=== PATIENT | female | born 1955 | race Caucasian/White ===

== ENCOUNTER 2020-08-16 08:07 | Emergency (ER) | payer MEDICARE, BC ==
[~2020-08-16] VITALS: Ht 175.3 cm; Wt 78.0 kg
[2020-08-16 08:49] LABS: BASOPHILS % (AUTO) 0.4 % (0-1); EOSINOPHILS % (AUTO) 0.1 % (0-6); HEMATOCRIT 45.2 % (35.0-45.0); HEMOGLOBIN 15.3 g/dl (12.0-16.0); LYMPHOCYTES % (AUTO) 13.7 % (21-51); MEAN CORPUSCULAR HEMOGLOBIN 31.8 PG (27.0-31.0); MEAN CORPUSCULAR HGB CONC 33.9 g/dL (33.0-36.5); MEAN CORPUSCULAR VOLUME 93.8 FL (78-98); MEAN PLATELET VOLUME 7.8 FL (7.4-10.4); MONOCYTES # (AUTO) 0.2 X10'3 (0-0.9); MONOCYTES % (AUTO) 2.9 % (2-12); NEUTROPHILS # (AUTO) 6.3 X10'3 (1.8-7.7); NEUTROPHILS % (AUTO) 82.9 % (42-75); PLATELET COUNT 308 X10'3 (140-440); RED BLOOD COUNT 4.82 X10'6 (4.20-5.60); RED CELL DISTRIBUTION WIDTH 13.1 % (11.5-14.5); WHITE BLOOD COUNT 7.5 X10'3 (4.5-11.0)
[2020-08-16] MEDS ORDERED: metoprolol tartrate 1mg/ml inj IV ONE (09:00)
[2020-08-16 09:02] LABS: ALANINE AMINOTRANSFERASE 38 U/L (12-78); ALBUMIN 4.2 G/DL (3.4-5.0); ALBUMIN/GLOBULIN RATIO 1.1 (1.1-1.5); ALKALINE PHOSPHATASE 88 IU/L (46-116); ANION GAP 12 (8-16); ASPARTATE AMINO TRANSFERASE 21 U/L (10-37); BILIRUBIN,TOTAL 0.4 MG/DL (0.1-1.0); BLOOD UREA NITROGEN 13 MG/DL (7-18); BUN/CREATININE RATIO 16.7 (6.6-38.0); CALCIUM 9.9 MG/DL (8.5-10.1); CHLORIDE 102 MMOL/L (99-107); CREATININE 0.78 MG/DL (0.40-0.90); GLUCOSE 138 MG/DL (70-104); POTASSIUM 3.6 MMOL/L (3.5-5.1); SODIUM 139 MMOL/L (135-145); TOTAL CARBON DIOXIDE 24.9 MMOL/L (24-32); TOTAL PROTEIN 7.9 G/DL (6.4-8.2); eGFR 74 ML/MIN
--- NOTE | 2020-08-16 10:00 | NUR ---
PT ANXIOUS AND DOESNT WANT TO BE LEFT ALONE
--- NOTE | 2020-08-16 10:15 | NUR ---
at bedside,will dc patient.
[2020-08-16] MEDS ORDERED: ATEN-169 PO (10:48)
--- NOTE | 2020-08-16 10:51 | NUR ---
pt states, i feel so much better, just want to go home and go to bed.
[2020-08-16 11:38] VITALS: BP 136/70
== END 2020-08-16 11:42 | disposition home or self-care (01) ==
LOC: ER 08:09
DX: R00.2 Palpitations (principal); R06.89 Other abnormalities of breathing; R00.0 Tachycardia, unspecified; Z79.899 Other long term (current) drug therapy
CPT/HCPCS: 36415; 71045; 80053; 83880; 84484; 85025; 93005; 96374; 99285; J3490

== ENCOUNTER 2025-04-08 10:00 | Observation (INO) | payer MEDICARE, OTHER ==
[~2025-04-08] VITALS: Ht 175.3 cm; Wt 77.3 kg
--- NOTE | 2025-04-08 10:26 | ELECTROCARDIOGRAPH REPORT ---
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 Rupesh Aguillon Measurements Intervals [place] Rate: 81 P: 27 NH: 156 QRS: 3 QRSD: 86 T: 65 QT: 398 QTc: 462 Interpretive Statements Sinus rhythm Atrial premature complex Probable left atrial enlargement Electronically Signed On 04-08-2025 11:53:[address] Rupesh Aguillon Please click the below link to view image of tracing.
--- NOTE | 2025-04-08 10:51 | RADIOLOGY REPORT ---
CHEST RADIOGRAPH Indication: CP Technique: Single frontal view of the chest was obtained Comparison: CHEST,SINGLE VIEW on DOS: 08/16/20 FINDINGS: Lines and Tubes: None Lungs: No focal consolidation. Pleura: No effusion. No pneumothorax. Cardiomediastinal contours: Unremarkable Bones: No acute osseous abnormality. IMPRESSION: 1. No acute cardiopulmonary disease.
[2025-04-08 10:53] LABS: MEAN PLATELET VOLUME 8.0 FL (7.4-10.4); RED CELL DISTRIBUTION WIDTH 13.2 % (11.5-14.5)
[2025-04-08 11:16] LABS: CREATININE 0.78 MG/DL (0.40-0.90); PRO BRAIN NATRIURETIC PEPTIDE 55 PG/ML (0-125); TOTAL CARBON DIOXIDE 26.4 MMOL/L (24-32); eCRCL 69 ML/MIN; eGFR 73 ML/MIN
--- NOTE | 2025-04-08 11:23 | Physician Documentation ---
History of Present Illness ~ Chief Complaint: Chest Pain Stated Complaint: WEAKNESS/ANXIOUS Time Seen by MD: 10:24 OK to notify your PCP?: Yes Source: patient, RN/MD, RN notes reviewed, old records Mode of Arrival: POV Exam Limitations: no limitations [facility] BED 16 This patient is a 69 y/o female who presents to ED with chief complaint of chest pain. Patient reports that she woke up this morning feeling somewhat anxious, as she was running late for a trip. She states that soon after she developed some burning in her chest, followed by some slight pain and weakness in her left arm. She does note that she was cleaning windows yesterday with that arm, which may account for the soreness. Patient notes she recently went camping last week, and feels somewhat sore from all the activity but otherwise denies any increased fa tigue or weakness from baseline. She denies any cardiac history, but states she does have some familial cardiac history; a younger brother who had an MD and stents a few years ago, and her other siblings with hypertension. She has not taken any ASA or other medications prior to arrival. Patient otherwise healthy. Patient was asked but denies any SOB. She does have some palpitations with her anxiety. Patient denies any other associated symptoms at this time. Patient denies any other alleviating or exacerbating factors. Medication Reconciliation Allergies: Coded Allergies: No Known Allergies (Unverified , 08/16/20) Past Medical History Past Medical History: *DERMATOLOGY* ([place]) Past Surgical History: other Other Past Surgical History: Cataract Surgery Smoking Status: Never smoker Alcohol Use: None Drug Use: none Review of Systems All Other Systems at this time: Reviewed and Negative ROS As stated in the HPI above, otherwise all other systems have been reviewed and negative. Respiratory: Denies: shortness of breath Cardiovascular: Reports: chest pain, left arm pain, palpitations Physical Exam Vital Signs: RN Vital Signs have been reviewed: Yes, Temperature: 97.7, Source: Temporal, Heart Rate: 82, Respiratory Rate: 18, BP: 189/74, Pulse Oximetry: 99, Weight: 77.350 Oxygen Flow Rate: 0 Physical Exam General: The patient is well developed, well nourished, nontoxic appearing and is in no acute distress. Skin: [place], warm and dry with no rashes. HEENT: Head was normocephalic and atraumatic. Eyes - pupils equal, round, reactive to light and accommodation. Extraocular movements were intact. Conjunctivae were nonicteric. The mouth and oropharynx were clear with moist mucous membranes. There were no pharyngeal exudates or erythema. Neck: Supple and nontender. There was no jugular venous distention, lymphadenopathy, thyromegaly or masses. Chest: Clear to auscultation bilaterally without wheezes, rales or rhonchi. No accessory muscle use. No dullness to percussion. Heart: 2/6 systolic injection murmur. Palpation of the chest wall was normal. No reproducible chest wall pain. Rate regular and rhythmic. S1, S2. No rubs or thrills. Abdomen: Soft, nontender and nondistended. Positive bowel sounds. No guarding or rebound. No hepatosplenomegaly or palpable masses. Extremities: No cyanosis, clubbing or edema. The patient moves all extremities. Pulses were equal and symmetric. Neurologic: Motor and sensation grossly intact. A & O x4. Psychologic: The patient was oriented to person, place and time. Progress Progress Note 1305: Paged hospitalist 1308: Case discussed with hospitalist who agrees to evaluate patient for admission. Results/Orders Reviewed/noted all lab results: Yes Results/Orders Orders - STEVE WYLIE MD Chest,Single View (04/08/25 10:24) Monitor (04/08/25 10:24) Saline Lock (04/08/25 10:24) Oxygen (04/08/25 10:24) Electrocardiogram (04/08/25 10:24) Page Hospitalist (04/08/25 13:05) Fill Out Med Reconciliation (04/08/25 13:05) Completed Orders - STEVE WYLIE MD Chest,Single View (04/08/25 10:24) Cbc/Diff (04/08/25 10:24) BMP (04/08/25 10:24) PBNP (04/08/25 10:24) Electrocardiogram (04/08/25 10:24) Hs Troponin I W Calculations (04/08/25 10:24) Hs Troponin I W Calculations (04/08/25 12:24) Hs Troponin I W Calculations (04/08/25 13:24) Pt Inr (04/08/25 11:38) PTT (04/08/25 11:38) Lipase (04/08/25 10:40) Liver Panel (04/08/25 10:40) Aspirin 81mg Chew Tablet (Aspirin 81mg C (04/08/25 12:25) Lipid Panel (04/08/25 10:40) MG (04/08/25 10:40) TSH (04/08/25 10:40) Medications Received in ER Medications (Trade) Dose Ordered Sig/Arthur Route PRN Reason Start Time Stop Time Status Last Admin Dose Admin (aspirin 81MG chew tablet) 324 mg ONCE ONCE PO 04/08/25 12:25 04/08/25 12:26 DC 04/08/25 13:08 324 MG Vital Signs 04/08/25 04/08/25 04/08/25 04/08/25 10:19 11:24 11:24 11:25 Temp 97.7 Pulse 82 83 Resp 18 16 16 B/P (MAP) 189/74 182/89 (120) Pulse Ox 99 98 97 O2 Delivery Room Air* O2 Flow Rate 0 0 0 FiO2 21 Laboratory Tests Test 04/08/25 10:40 04/08/25 12:28 White Blood Count 6.7 Red Blood Count 4.69 Hemoglobin 14.7 Hematocrit 43.1 Mean Corpuscular Volume 92.0 Mean Corpuscular Hemoglobin 31.4 H Mean Corpuscular Hemoglobin Concent 34.1 Red Cell Distribution Width 13.2 Platelet Count 282 Mean Platelet Volume 8.0 Neutrophils (%) (Auto) 57.4 Lymphocytes (%) (Auto) 32.4 Monocytes (%) (Auto) 8.3 Eosinophils (%) (Auto) 1.0 Basophils (%) (Auto) 0.9 Neutrophils # (Auto) 3.8 Lymphocytes # (Auto) 2.2 Monocytes # (Auto) 0.5 Eosinophils # (Auto) 0.1 Basophils # (Auto) 0.1 CBC Comment Prothrombin Time 10.0 INR International Normalized Ratio 1.0 Activated Partial Thromboplast Time 26 Coagulation Comments Sodium Level 137 Potassium Level 3.9 Chloride Level 104 Carbon Dioxide Level 26.4 Anion Gap 7 L Blood Urea Nitrogen 8 Creatinine 0.78 Estimated GFR/1.73 m2 73 BUN/Creatinine Ratio 10.3 Glucose Level 125 H Calcium Level 9.6 Magnesium Level 1.8 Total Bilirubin 0.6 Direct Bilirubin 0.1 Aspartate Amino Transf (AST/SGOT) 17 Alanine Aminotransferase (ALT/SGPT) 24 Alkaline Phosphatase 79 Troponin I High Sensitivity 6 8 Pro-B-Type Natriuretic Peptide 55 Total Protein 7.5 Albumin 4.0 Globulin 3.5 Albumin/Globulin Ratio 1.1 Triglycerides Level 100 Cholesterol Level 234 H LDL Cholesterol 136 H HDL Cholesterol 76 H Cholesterol/HDL Ratio 3.1 Lipase 31 Thyroid Stimulating Hormone (TSH) 3.18 Chemistry Comments Troponin I High Sens Percent Delta 33 Troponin I Hi Sens Absolute Change 2 Re-Evaluation Re-Evaluation : Re-Evaluation: Improved Progress Patient was seen and examined. Patient is given reassurance. Patient's laboratory work was all reassuring. Coagulation within normal limits tox screen negative urinalysis negative chemistry also negative including LFTs with two troponins which are negative. CBC is also within normal limits. Patient's history has a bit concerning or possible unstable angina which will require stress test. Patient received aspirin and later was admitted for further workup and care. Has been at bedside patient understood plan for stress test. Echocardiogram was ordered chest x-ray showed no infiltrates or effusions. Continuous residential monitor interpretation shows normal sinus rhythm heart rate 80s, no ectopy, normal, my interpretation. Pulse oximetry monitor interpretation shows normal oxygenation 99% room air, normal, my interpretation. 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 Steve Wylie Measurements Intervals [place] Rate: 81 P: 27 DE: 156 QRS: 3 QRSD: 86 T: 65 QT: 398 QTc: 462 Interpretive Statements Sinus rhythm Atrial premature complex Probable left atrial enlargement Electronically Signed On 04-08-2025 11:53:[address] Steve Wylie Please click the below link to view image of tracing. EKG Date and Time:04/08/25 1005 Electronically Signed by: STEVE WYLIE MD Date and Time: 04/08/25 1153 NO PRIMARY CARE PROVIDER~ cc: ~ Chest X-Ray : Interpreted By: both Additional Comments [address] [id number] DIAGNOSTIC RADIOLOGY Patient: ZONIA RAMÍREZ Medical Record: [id number] [facility] : 1955, Age: 69 Sex: Female Location: ER Patient Status: [facility] ER Service Date/Time: 04/08/251023 Ordering Physician: STEVE WYLIE MD Exam: CHEST,SINGLE VIEW CHEST RADIOGRAPH Indication: CP Technique: Single frontal view of the chest was obtained Comparison: CHEST,SINGLE VIEW on DOS: 08/16/20 FINDINGS: Lines and Tubes: None Lungs: No focal consolidation. Pleura: No effusion. No pneumothorax. Cardiomediastinal contours: Unremarkable Bones: No acute osseous abnormality. IMPRESSION: 1. No acute cardiopulmonary disease. Electronically Signed by:DAMARIS BULL MD Date & Time: 04/08/25 1049 Dictated by: DAMARIS BULL MD Dictation date and time: 04/08/25 1035 Primary Care Provider: NO PRIMARY CARE PROVIDER cc: STEVE WYLIE MD ~ EDMD Dr. Wylie reviewed imaging and agrees with above findings. Heart Score: Heart Score Response (Comments) Value History Moderate Suspicious 1 EKG Repolarization Disturb 1 Age >65 2 Risk Factors 1 or 2 risk factors 1 Troponin Normal limit 0 Total 5 Medical Decision Making Additional info obtained from: old records Differential Dx:Considerations: Include: angina, aortic dissection, chest wall pain, cholelithiasis, CHF, costochondritis, esophageal reflux/spasm, gastritis, herpes zoster, myocardial infarction, pericarditis, pleuritis, pancreatitis, pneumonia, pneumothorax, pulmonary embolus, other Departure Time of Disposition: 13:08 Disposition: ADMITTED INPATIENT Admitted to Inpatient Unit: to hospitalist Admission Level of Care: PCU with Tele Impression: Primary Impression: Chest pain Qualified Codes: R07.9 - Chest pain, unspecified Additional Impression: Accelerated hypertension Condition: Guarded Referrals: NO PRIMARY CARE PROVIDER (PCP) Education Educated: Patient Educated regarding: diagnosis, treatment, prognosis, need for follow up, other Signature Scribe Signature: Scribed for Steve Wylie MD by Rebeka Garcia. 04/08/25 11:52 Attestation: The note accurately reflects work and decisions made by me.Steve Wylie MD 04/08/25 11:23 STEVE WYLIE MD Apr 08, 2025 11:23
[2025-04-08 11:55] LABS: APTT 26 SECONDS (22-32); INR 1.0 INR
[2025-04-08] MEDS ORDERED: magnesium Cl slow-release 64mg tablet PO PRN (14:55)
[2025-04-08] MEDS ORDERED: magnesium hydroxide 30ml (MOM) UD suspension PO PRN (14:55)
[2025-04-08] MEDS: PERFLUTREN PROTEIN-A MICROSPHR (Optison) 0.22 MG/ML 3ML VIAL IV ONE (14:55)
[2025-04-08] MEDS ORDERED: potassium Cl 20 mEq SR tablet PO PRN ×2 (14:55)
[2025-04-08] MEDS ORDERED: docusate sod 100mg capsule PO PRN (14:55)
[2025-04-08] MEDS ORDERED: ondansetron/PF 4mg/2ml inj IV PRN (14:55)
[2025-04-08] MEDS ORDERED: aminophylline 250mg/10ml inj. IV PRN (14:55)
[2025-04-08] MEDS ORDERED: mag hydrox/Alum hydrox/simeth 30ml oral suspension PO PRN (14:55)
[2025-04-08] MEDS ORDERED: magnesium sulf-water 2g/50mL 50 ML IV PRN (14:55)
[2025-04-08] MEDS ORDERED: potassium Cl 40MEQ/1/2NS 520ml 520 ML IV PRN (14:55)
[2025-04-08] MEDS ORDERED: metoprolol tartrate 1mg/ml inj IV PRN (14:55)
[2025-04-08] MEDS ORDERED: magnesium sulf-water 4G/100mL 100 ML IV PRN (14:55)
[2025-04-08 15:25] LABS: LEUKOCYTE ESTERASE ,URINE NEGATIVE (Neg); NITRITES, URINE NEGATIVE (Neg); OCCULT BLOOD,URINE NEGATIVE (Neg)
[2025-04-08 15:27] LABS: CHOL/HDL RATIO 3.1 (0.00-4.99); LDL CHOLESTEROL 136 MG/DL (50-100)
[2025-04-08 15:27] LABS: UA COLLECTION TYPE CLN CATCH MIDSTREAM
[2025-04-08 17:38] LABS: URINE AMPHETAMINE SCREEN NEGATIVE (Neg); URINE BARBITUATE SCREEN NEGATIVE (Neg); URINE BENZODIAZEPINES SCREEN NEGATIVE (Neg); URINE CANNABINOID SCREEN NEGATIVE (Neg); URINE COCAINE SCREEN NEGATIVE (Neg); URINE METHADONE SCREEN NEGATIVE (Neg); URINE OPIATE SCREEN NEGATIVE (Neg); URINE PHENCYCLIDINE SCREEN NEGATIVE (Neg)
--- NOTE | 2025-04-08 18:53 | HISTORY AND PHYSICAL-Residence ---
History & Physical Providers to CC Resident Creating Document: ELIDIA WRAY RES ~ History of Present Illness Reason for Admit\Complaint: Chest pain to rule out ACS History of Present Illness A 69 years old female with a past medical history of anxiety, panic attack, GERD, HLD, possible white coat hypertension presented with acute sat central chest pain this morning with a concern of having ACS in the background family history of ACS. She stated that she started having the central chest pain which is similar to the acid reflux imbedded totally different from the previous experiences while she was preparing to her road trip this morning. She did not have any similar experiences before. It lasted for a minute and two episodes so far, and associated with the palpitations what she used to have with the anxiety attack, but denied for any associated nausea vomiting, dizziness lightheadedness, radiating pain to the back neck and a left upper arm. It went away by itself without taking any medications. She subjectively attributed that the pain has a little bit relieved by leaning forward position but it was not associated with any meal. She denies fever with chills and rigors, hemoptysis, peripheral chest pain, shortness of breath, orthopnea PND and bilateral pedal edema. She denies any recent history of viral prodromal symptoms, any recent strenuous exercises, injury/trauma to the chest wall, any long distance history and recent cancer and cancer related treatment, history of DVT and pulmonary embolism in the past. She is a lifetime nonsmoker and she is currently not on any hormone replacement therapy at the moment. She is currently only taking simethicone for her GERD, used to take propranolol for her palpitations from anxiety attack, and Ashwagandha for her anxiety only. Allergies: Coded Allergies: No Known Allergies (Unverified , 08/16/20) Home Medications Home Medications Active Past Medical History Past Medical History Anxiety, panic attack, GERD Family history of parents with heart attack at the age of above 70 and the younger brother had heart attack at the age of 65. HLD Past Surgical History Surgical History Comment Right knee meniscal repair surgery, tonsillectomy and adenectomy at 3 years old Past Social History Social History Comment She is a lifetime nonsmoker, denies using any illicit drugs. She rarely drinks 4-6 oz of wine wants to 2 times in a month. She usually use caffeine 10-12 oz 3 times every day. She is currently living with her spouse/ at the home and a has three children. Alcohol Use: None Drug Use: None ROS All Other Systems: Reviewed and Negative ROS Constitutional: No fever, chills, dizziness, weakness, weight gain or loss Eyes: No pain, erythema, discharge, blurring of vision ENT: No sore throat, epistaxis, tinnitus Cardiovascular: No syncope, lower extremity edema, paroxysmal nocturnal dyspnea Respiratory: No shortness of breath, cough, hemoptysis Gastrointestinal: Normal appetite. No nausea, vomiting, diarrhea, constipation, hematemesis, abdominal pain, bloating, melena or fresh blood Genitourinary: No frequency, urgency, nocturia, hematuria or dysuria Musculoskeletal: No arthralgias or myalgias Integumentary: No change in skin, hair, nails. No swelling, bruising, abrasions Neurologic: No headache, neck pain, numbness or tingling of the extremities, weakness Psychiatric: No delusions, depression, loss of interest in normal activity or change in sleep pattern, hallucinations, suicidal ideations Endocrine: No fatigue, weakness, polydipsia, polyuria, change in appetite, heat or cold intolerance, sweating, dry skin Hematological: No bleeding, petechiae, bruising Allergies: No asthma or urticaria Respiratory: Denies: shortness of breath Cardiovascular: Reports: chest pain, left arm pain, palpitations Exam Vitals: Vital Signs Date Time Temp Pulse Resp B/P (MAP) Pulse Ox O2 Delivery O2 Flow Rate FiO2 04/08/25 13:57 97.8 77 18 167/93 (117) 99 0 04/08/25 11:24 Room Air* 21 General: General: Well alert, well oriented, not confused, not agitated, not in acute distress, well cooperated during the physical. HEENT: HEENT: Conjunctive are pink, sclerae clear, no icterus, pupil is equal in both sides, reactive to light, no ear discharge, no pharyngeal erythema or an edema, mouth and lips are moist. Neck: Neck: Supple, no JVD, no lymphadenopathy and thyromegaly. Chest: Lungs:Equal air entry on both lungs, no additional sounds Chest wall, no tenderness on palpation, no bruises and petechiae Cardiovascular: Heart: S1-S2 regular sinus rhythm and, regular rate, no gallops, no rubs, no murmurs Abdomen: Abdomen: No visible peristalsis, Bowel sounds present on auscultation, soft, nontender, no guarding, no rigidity Extremities: Extremities: No obvious deformities, no pitting edema bilaterally, capillary refill intact, able to wiggle toes both sides, peripheral pulsations are intact on both sides Some dilated veins over the skins bilateral legs from the chronic venous insufficiency Central Nervous System: LEARNING SUPPORT SERVICES DIRECTOR: No focal neurological deficits, no motor and sensory weakness in all 4 extremities, could move all 4 extremities Musculoskeletal: Musculoskeletal: No joint swelling, deformities, inflammations, and no scoliosis and back tenderness Skin: Skin: No active skin lesions and rashes Diagnostic Data Last Recorded Lab Results: 04/08/25 1040 04/08/25 1040 Diagnostic Data: Laboratory Tests Test 04/08/25 10:40 Prothrombin Time 10.0 SECONDS (9.0-12.0) INR International Normalized Ratio 1.0 INR Activated Partial Thromboplast Time 26 SECONDS (22-32) Coagulation Comments Counseling Services Smoking & Tobacco Cessation: > 10 Minutes Advance Care Planning Advanced Care plannin - 30 Minutes Additional Plan A 69 years old female with a past medical history of anxiety, panic attack, GERD, HLD, possible white coat hypertension presented with acute sat central chest pain this morning with a concern of having ACS in the background family history of ACS. # central chest pain to exclude ACS # Hypertensive urgency # GERD # Anxiety and panic attack history -given history of central chest pain which is atypical along with normal sinus EKG without having any ST-T changes, serial troponin levels showed 6-8-6 although her family history has hyperlipidemia and acute coronary syndrome, her central chest pain is clinically less likely to be cardiac origin but ACS would be excluded out on this admission. -she found to have high blood pressure on admission with a maximum level of 190/74 without having any end-organ damage, which could be contributing her central chest pain versus from the anxiety induced high blood pressure -Her Heart Score for with moderate risk, her 10 year ASCVD risk was 7.7% which is moderate risk -she does not have any anemia, normal lipase -UTox and UA showed within normal limits -within normal limits chest x-ray -plan: Started sublingual nitroglycerin 0.4 mg 3 times Q 5 minutes if BP allows : Started and continue p.o. famotidine 20 mg b.i.d., p.o. simethicone 80 mg t.i.d. as needed for flatulence : Discussed the importance of statin medication in reducing cardiovascular risk accidents especially in hyperlipidemia and strong family history of ACS patient like her, she refused to have statin because of the research evidence of statin related myopathy : Explained and educated about the role of statin to reduce hyperlipidemia and stabilized cholesterol plaque in coronary arteries to prevent acute coronary syndrome in the future; other alternative medications with coenzyme Q to reduce the risk of potential statin related side effects including myopathy, alternating Repatha injection in outpatient setting : NPO after today midnight : Plan for tomorrow cardiac stress test and consider Cardiology consultation as per results : Continuous telemetry monitoring : Started p.o. losartan low-dose 25 mg daily to avoid 1st dose phenomenon, we will consider beta blockers after stress test results came out if that is necessary also to control blood pressure and her anxiety with palpitations : Pending cardiology report for 2D echocardiogram, prelim report showed LVEF 65-70%, LA/RV normal, trace MR, TR, normal pericardium and no effusion. # hyperglycemia -pending HGB A1c -RBS on presentation was 125 -we will continue monitoring # moderate consuming EtOH # history of anxiety and panic attack -she is consuming 4-6 oz 2-3 times per month -moderate EtOH consuming showed the evidence of reducing back cholesterol profile and maintaining patency of coronary arteries -educated about the excessive consumption and risks of heavy alcohol usage -reassured the patient with the pending plans and investigations to rule out vital ACS CODE STATUS: Full code DVT prophylaxis: SCDs until fully ambulatory, sc heparin 5000 units b.i.d. Analgesia/sedation: IV morphine as Needed/Tylenol Lines/tubes: PIV GI prophylaxis: Famotidine and simethicone Nutrition: Heart healthy diet, NPO after midnight for tomorrow cardiac stress test Prognosis: Guarded Disposition: Continue medical management including blood pressure control, continuous telemetry monitoring, NPO after midnight, cardiac stress test tomorrow, PT eval and DC plan. Resident MD attestation: Patient was seen, examined and discussed with attending MD, Dr. Bethany WRAY MD Internal Medicine Resident, PGY3 [facility] Date of Service: Apr 08, 2025 Billing Provider: CHRISTELLE LOPEZ MD Common Visit Codes: 94733-YVNFADN INP/OBS CARE (HIGH) Secondary Visit Codes: 17537-BCYHYRZE CARE PLAN 30 MINUTES ELIDIA WRAY, RES Apr 08, 2025 18:53 CHRISTELLE LOPEZ MD Apr 09, 2025 21:07
[2025-04-08] MEDS: K and/or MAG REPLACEMENT MC SCH (20:00)
[2025-04-08] MEDS: heparin, porcine 5000 units/ml vial SQ SCH (20:00)
[2025-04-08 22:15] VITALS: BP 158/88; PULSE 73; RESP 18; TEMP 98.3; O2SAT 100
[2025-04-09] VITALS (13 sets, daily range): BP systolic 122–173; BP diastolic 58–85; PULSE 68–119; RESP 14–19; TEMP 97.4–97.8; O2SAT 98–100
[2025-04-09 08:46] LABS: MEAN PLATELET VOLUME 7.8 FL (7.4-10.4); RED CELL DISTRIBUTION WIDTH 13.7 % (11.5-14.5)
[2025-04-09 08:58] LABS: CREATININE 0.73 MG/DL (0.40-0.90); TOTAL CARBON DIOXIDE 27.3 MMOL/L (24-32); eCRCL 74 ML/MIN; eGFR 79 ML/MIN
[2025-04-09] MEDS: regadenoson 0.4mg/5ml syringe IV PRN (10:09)
[2025-04-09] MEDS ORDERED: NO HOME MEDS CO (11:07)
--- NOTE | 2025-04-09 11:57 | RADIOLOGY REPORT ---
Reason for study/Clinical History: CHEST PAIN Comparison Study: None Myocardial Perfusion Study with SPECT Technique: The patient received an intravenous injection of 8.7 mCi of technetium-99m Sestamibi whi clarissa at rest. After a short delay, SPECT tomographic images of the heart were obtained. The patient elza lin went to the stress lab where they received an intravenous Lexiscan utilizing standard protocol. 34.8 mCi of technetium-99m Sestamibi was injected intravenously immediately after the start of the infusion. Gated SPECT tomographic images of the heart were acquired and processed. Findings: Rotating planar images show no significant attenuation artifact. The left ventricular size is within normal limits. Stress tomographic images demonstrate normal perfusion. Resting tomographic images demonstrate a similar pattern. Gated portion of the study shows normal wall motion and myocardial thickening. The left ventricular ejection fraction is 63%. (normal greater than 50%) Impression: Normal left ventricular size, wall motion, and function, without evidence of infarction or of myocard ium at ischemic risk. The left ventricular ejection fraction is 63%.
[2025-04-09] MEDS ORDERED: FAMO20TA8 PO (12:24)
[2025-04-09] MEDS ORDERED: SIME80TA73 PO (12:24)
[2025-04-09] MEDS ORDERED: LOSA50TA64 PO (12:24)
--- NOTE | 2025-04-09 16:28 | DISCHARGE SUMMARY-Residence ---
Discharge Summary Providers to CC Resident Creating Document: ELIDIA WRAYGEETHA ~ Discharge Summary Admission Diagnosis: CP to exclude ACS Hospital Course DATE OF ADMISSION: DATE OF DISCHARGE: Discharge Diagnosis\Comment: # central chest pain, excluded ACS with normal Briseida scan on 04/09/25, Non cardiac chest pain mostly due to Anxiety and GERD # Hypertensive urgency # GERD # Anxiety and panic attack history # hyperglycemia # moderate consuming EtOH # history of anxiety and panic attack Operations\Procedures: OSCAR Flores Consultants: None Complications: None Condition on DC: Stable New Medications: Losartan Potassium (Losartan Potassium) 50 Mg Tablet 50 MG PO DAILY for 30 Days, #30 TAB Famotidine (Famotidine) 20 Mg Tablet 20 MG PO BID for 14 Days, #28 TAB Simethicone (Gas Relief 80) 80 Mg Tab.chew 80 MG PO TID PRN for flatulance for 14 Days, #30 TAB.CHEW Discharge Summary: A 69 years old female with a past medical history of anxiety, panic attack, GERD, HLD, possible white coat hypertension presented with acute sat central chest pain this morning with a concern of having ACS in the background family history of ACS. She was admitted to evaluate for her ACS risk on this admission. Hospital course: Given history of central chest pain which is atypical along with normal sinus EKG without having any ST-T changes, serial troponin levels showed 6-8-6 although her family history has hyperlipidemia and acute coronary syndrome, her central chest pain is clinically less likely to be cardiac origin but ACS would be excluded out on this admission. She found to have high blood pressure on a dmission with a maximum level of 190/74 without having any end-organ damage, which could be contributing her central chest pain versus from the anxiety induced high blood pressure. Her Heart Score for with moderate risk, her 10 year ASCVD risk was 7.7% which is moderate risk. She does not have any anemia, normal lipase. Her UTox and UA showed within normal limits. A chest x-ray showed within normal limits. She was given sublingual nitroglycerin 0.4 mg 3 times Q 5 minutes, and we continued p.o. famotidine 20 mg b.i.d., p.o. simethicone 80 mg t.i.d. as needed for flatulence. We discussed the importance of statin medication in reducing cardiovascular risk accidents especially in hyperlipidemia and strong family history of ACS patient like her, she refused to have statin because of the research evidence of statin related myopathy. She was explained and educated about the role of statin to reduce hyperlipidemia and stabilized cholesterol plaque in coronary arteries to prevent acute coronary syndrome in the future; other alternative medications with coenzyme Q to reduce the risk of potential statin related side effects including myopathy, alternating Repatha injection in outpatient setting. 2D echocardiogram, prelim report showed LVEF 65-70%, LA/RV normal, trace MR, TR, normal pericardium and no effusion. Her NM Cardiac Stress test/ Briseida scan on 04/09/25 showed Normal left ventricular size, wall motion, and function, without evidence of infarction or of myocardium at ischemic risk. The left ventricular ejection fraction is 63%. She was monitored with the continuous telemetry throughout her stay. We will control her blood pressure started with p.o. losartan low-dose 25 mg daily to avoid 1st dose phenomenon and increased the dosage to 50 daily on next day for better BP control. She was reassured unexplained in details for pending plans and investigations to rule out vital ACS during her stay in the setting of anxiety and a panic attack history. She was educated about the excessive consumption and risks of heavy alcohol usage. DVT prophylaxis was achieved with the SCDs until fully ambulatory and sc heparin 5000 units b.i.d. pain was controlled with the IV morphine as needed/sublingual nitroglycerin as needed/Tylenol. Her GI prophylaxis was done with the famotidine simethicone as needed. All of her home medications were reviewed and reconciled and continue appropriately. Today, her labs showed within normal limits. All of her questions and concerns were addressed with the best knowledge of our team before she was discharged. Today, all of her vitals were stable at the moment with temp 97.8 F, WA 68/minute, RR 90/minute, BP 160/60 mm Hg, pulse oximetry 98% on room air. On exam, General: Well alert, well oriented, not confused, not agitated, not in acute distress, well cooperated during the physical. HEENT: Conjunctive are pink, sclerae clear, no icterus, pupil is equal in both sides, reactive to light, no ear discharge, no pharyngeal erythema or an edema, mouth and lips are moist. Neck: Supple, no JVD, no lymphadenopathy and thyromegaly. 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 -follow up with the PCP for further management including blood pressure control and medication adjustment -recommended DASH Diet and stress coping with relaxation technique -Recommended to check BP twice daily for two weeks in a row, document the results to showed with the PCP for better blood pressure control. -recommended heart healthy diet with plenty of vegetables and fruits in the diet. -explained and educated about the roles of statin medication in lowering blood cholesterol and cardiovascular accidents in the future which should be more discussed with the PCP in outpatient setting including alternating medications. Resident MD attestation: Patient was seen, examined and discussed with attending MD, Dr. Bethany WRAY MD Internal Medicine Resident, PGY3 [facility] *Problems/Diagnosis: (1) Chest pain Status: Resolved Total Time Spent on D/C: > 30 Minutes Date of Service: Apr 09, 2025 Billing Provider: CHRISTELLE LOPEZ MD Common Visit Codes: 12945-HAL/OBS DISCH DAY >30min Problem Qualifiers (1) Chest pain: Chest pain type: unspecified Qualified Codes: R07.9 - Chest pain, unspecified ELIDIA WRAY, GEETHA Apr 09, 2025 16:27 CHRISTELLE LOPEZ MD Apr 09, 2025 21:08
--- NOTE | 2025-04-09 19:12 | CARDIOLOGY REPORT ---
APPROVED REPORT EXAM: Comprehensive 2D, Doppler, and color-flow Echocardiogram. 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 140.2 cm/s AoV VTI 26.8 cm AO Peak GR. 7.9 mmHg AO Mean GR. 4 mmHg LVOT VTI 20.28 cm LVOT Peak Kalin. 113.3 cm/s CHEY(VTI)/BSA 2.65 cm2/m2 CHEY (VTI) 2.65 cm2 Mitral Valve MV E Velocity 78.2 cm/s MV Peak Gr. 2 mmHg MV A Velocity 114.6 cm/s MV PHT 56 ms E/A Ratio 0.7 MVA (PHT) 3.93 cm2 MV VMax78.0 cm/s LEFT VENTRICLE Normal LV size and wall thickness. Overall systolic function is normal. Overall LVEF is 65-70%. RIGHT VENTRICLE RV is normal size and function. ATRIA The left atrium size is normal. AORTIC VALVE Trileaflet AV appears mildly sclerotic without stenosis. No insufficiency. MITRAL VALVE Mild MV annular calcification without stenosis. Trace regurgitation. TRICUSPID VALVE TV appears structurally normal with trace regurgitation. PULMONIC VALVE Normal PV without stenosis, no insufficiency. GREAT VESSELS The aortic root is normal in size. PERICARDIUM Normal pericardium. No effusion. Other Information Study Quality: Adequate Conclusion Overall LVEF is 65-70%. Normal LV size and wall thickness. Overall systolic function is normal. RV is normal size and function. Trileaflet AV appears mildly sclerotic without stenosis. No insufficiency. Mild MV annular calcification without stenosis. Trace regurgitation. TV appears structurally normal with trace regurgitation. Normal PV without stenosis, no insufficiency. Normal pericardium. No effusion.
== END 2025-04-09 13:45 | disposition home or self-care (01) ==
LOC: ER 10:00 → INTOOBSV 13:11 → ED HOLD 13:11 → UNDOADMOB 13:11 → PCU 3S 14:53 → ED HOLD 20:39 → PCU 3S 22:15 → ED HOLD 22:15
PROVIDERS: ADMIT Internal Medicine; ATTEND Internal Medicine
DX: R07.89 Other chest pain (principal); R53.1 Weakness; I10 Essential (primary) hypertension; I16.0 Hypertensive urgency; K21.9 Gastro-esophageal reflux disease without esophagitis; F41.0 Panic disorder [episodic paroxysmal anxiety]; R73.9 Hyperglycemia, unspecified; F10.10 Alcohol abuse, uncomplicated; Z79.899 Other long term (current) drug therapy; Z98.890 Other specified postprocedural states
CPT/HCPCS: 78452; 80048; 80053; 80061; 80076; 80305; 81003; 83690; 83735; 83880; 84443; 84484; 85610; 85730; 93005; 93017; 93306; 96372; 99285; A9500; G0378; 36415; 71045; 85025; 87081; J1644; J2785